=== PATIENT | female | born 1945 | race Caucasian/White ===

== ENCOUNTER 2021-02-13 04:40 | Emergency (ER) | payer BC, OTHER ==
[~2021-02-13] VITALS: Ht 157.5 cm; Wt 63.5 kg
[~2021-02-13 04:40] MED LIST: GLYB-200 PO; METF850T PO; METO100T22 PO; PRON INH
--- NOTE | 2021-02-13 04:51 | NUR ---
BIBA TO ER BED 1
[2021-02-13 05:07] VITALS: BP 144/47
--- NOTE | 2021-02-13 05:07 | NUR ---
BIBA TO BED 1 AFTER PT WAS GETTING UP TO GO TO THE BATHROOM. SLIPPED AND FELL HITTING TOP AND BACK OF HEAD.DENIES KO. IS AWAKE AND ALERT. PMH :OPEN HEART SURGERY 01/29/21, BRAIN N ANEURYSM, ESRD, ASTHMA, HTN, COPD ALLERGIES : CAPRI CATALAN
--- NOTE | 2021-02-13 06:49 | NUR ---
TO CT VIA [facility]
--- NOTE | 2021-02-13 07:30 | NUR ---
PT ALERT AND AWAKE, BREATHING EVEN AND UNLABORED. PT STATES SHE IS FEELING FINE AND ALL NEEDS MET AT THIS TIME
--- NOTE | 2021-02-13 09:30 | NUR ---
PT ALERT AND AWAKE, BREATHING EVEN AND UNLABORED. PT ON PHONE WAITING FOR FAMILY TO PICKUP
--- NOTE | 2021-02-13 11:25 | NUR ---
Patient discharged with v/s stable. Written and verbal after care instructions about concussion given and explained. Patient verbalized understanding. Ambulatory with steady gait. All questions addressed prior to discharge. Advised to follow up with PMD.
[2021-02-13 11:37] VITALS: BP 138/48
--- NOTE | 2021-02-13 11:38 | NUR ---
Alfredo granger in EDM - 02/13/21 at 1138 by MEDDERREK Patient discharged with v/s stable. Written and verbal after care instructions about concussion given and explained. Patient verbalized understanding. Ambulatory with steady gait. All questions addressed prior to discharge. Advised to follow up with PMD.
== END 2021-02-13 11:25 | disposition home or self-care (01) ==
LOC: MED 04:40
DX: S09.90XA Unspecified injury of head, initial encounter (principal); J44.9 Chronic obstructive pulmonary disease, unspecified; E11.9 Type 2 diabetes mellitus without complications; I10 Essential (primary) hypertension; Z79.84 Long term (current) use of oral hypoglycemic drugs; Z79.899 Other long term (current) drug therapy; Z88.0 Allergy status to penicillin; Z88.8 Allergy status to other drugs, medicaments and biological substances; W19.XXXA Unspecified fall, initial encounter; Y93.89 Activity, other specified; Y92.89 Other specified places as the place of occurrence of the external cause; Y99.8 Other external cause status
CPT/HCPCS: 70450; 72125; 99285